=== PATIENT | male | born 1945 | race Caucasian/White ===

== ENCOUNTER 2022-06-30 15:07 | Outpatient (CLI) | payer MEDICARE, BC, SELFPAY ==
[2022-06-30 14:49] LABS: Chloride* 102 mmol/L (96-114)
[2022-06-30 14:50] LABS: Potassium* 4.8 mmol/L (3.6-5.1); Sodium* 138 mmol/L (135-149)
[2022-06-30 14:52] LABS: Cholesterol* 141 mg/dL (90-199); Creatinine* 0.9 mg/dL (0.5-1.5); Estimated Glomerular Filt Rate 88 ml/min
[2022-06-30 14:53] LABS: Blood Urea Nitrogen* 22 mg/dL (7-30); Calcium* 9.5 mg/dL (8.4-10.6); Carbon Dioxide* 26 mmol/L (20-32); Glucose* 94 mg/dL (60-115); HDL Cholesterol* 30 mg/dL (>=40); LDL Cholesterol Calculated 81 mg/dL (<100); Triglycerides* 149 mg/dL (40-149)
[2022-06-30 15:07] LABS: Ferritin* 41.9 ng/mL (17.9-464.0)
== END 2022-06-30 15:08 | disposition home or self-care (01) ==
PROVIDERS: PCP Emergency Medicine; Visit Provider Emergency Medicine
DX: D64.9 Anemia, unspecified (principal); E78.5 Hyperlipidemia, unspecified; R97.20 Elevated prostate specific antigen [PSA]; I10 Essential (primary) hypertension
CPT/HCPCS: 80048; 80061; 82728; 84153

== ENCOUNTER 2022-07-09 11:39 | Outpatient (CLI) | payer MEDICARE, BC, SELFPAY ==
[2022-07-09 23:25] LABS: Creatinine Urine 122.2 mg/dL; Microalbumin Creatinine Ratio 40 mg/g (0-30); Microalbumin Urine 6 mg/dL
== END 2022-07-09 11:40 | disposition home or self-care (01) ==
LOC: LKVREF 11:40
PROVIDERS: PCP Emergency Medicine; Visit Provider Emergency Medicine
DX: E11.9 Type 2 diabetes mellitus without complications (principal); I10 Essential (primary) hypertension
CPT/HCPCS: 82043; 82570

== ENCOUNTER 2022-12-10 08:15 | Outpatient (CLI) | payer MEDICARE, BC, SELFPAY ==
[2022-12-10 13:28] LABS: Chloride* 104 mmol/L (96-114); Sodium* 139 mmol/L (135-149)
[2022-12-10 13:29] LABS: Potassium* 5.6 mmol/L (3.6-5.1)
[2022-12-10 13:31] LABS: Blood Urea Nitrogen* 20 mg/dL (7-30); Carbon Dioxide* 29 mmol/L (20-32); Cholesterol* 147 mg/dL (90-199); Creatinine* 0.9 mg/dL (0.5-1.5); Estimated Glomerular Filt Rate 88 ml/min
[2022-12-10 13:32] LABS: Calcium* 9.6 mg/dL (8.4-10.6); Glucose* 109 mg/dL (60-115); HDL Cholesterol* 29 mg/dL (>=40); LDL Cholesterol Calculated 70 mg/dL (<100); Triglycerides* 242 mg/dL (40-149)
[2022-12-10 13:54] LABS: Creatinine Urine 62.4 mg/dL
[2022-12-10 13:59] LABS: Microalbumin Creatinine Ratio 90 mg/g (0-30); Microalbumin Urine 6 mg/dL
[2022-12-10 14:03] LABS: PSA Diagnostic* 1.85 ng/mL (0.10-4.00)
== END 2022-12-10 08:16 | disposition home or self-care (01) ==
PROVIDERS: PCP Emergency Medicine; Visit Provider Emergency Medicine
DX: Z00.00 Encounter for general adult medical examination without abnormal findings (principal); E11.9 Type 2 diabetes mellitus without complications; E78.5 Hyperlipidemia, unspecified; I10 Essential (primary) hypertension; R97.20 Elevated prostate specific antigen [PSA]; Z12.5 Encounter for screening for malignant neoplasm of prostate
CPT/HCPCS: 80048; 80061; 82043; 82570; 84153

== ENCOUNTER 2022-12-15 13:36 | Outpatient (CLI) | payer MEDICARE, BC, SELFPAY ==
[2022-12-16 16:56] LABS: Vitamin B12* 807 pg/mL (243-894)
== END 2022-12-15 13:37 | disposition home or self-care (01) ==
PROVIDERS: PCP Emergency Medicine; Visit Provider Emergency Medicine
DX: Z00.00 Encounter for general adult medical examination without abnormal findings (principal); E11.9 Type 2 diabetes mellitus without complications; I10 Essential (primary) hypertension; G62.9 Polyneuropathy, unspecified; E78.5 Hyperlipidemia, unspecified
CPT/HCPCS: 82607

== ENCOUNTER 2023-03-31 14:34 | Outpatient (CLI) | payer MEDICARE, BC, SELFPAY ==
[2023-03-31 21:39] LABS: Chloride* 100 mmol/L (96-114)
[2023-03-31 21:40] LABS: Potassium* 5.1 mmol/L (3.6-5.1); Sodium* 136 mmol/L (135-149)
[2023-03-31 21:42] LABS: Creatinine* 1.1 mg/dL (0.5-1.5); Estimated Glomerular Filt Rate 69 ml/min
[2023-03-31 21:43] LABS: Blood Urea Nitrogen* 27 mg/dL (7-30); Calcium* 9.9 mg/dL (8.4-10.6); Carbon Dioxide* 24 mmol/L (20-32); Glucose* 98 mg/dL (60-115)
== END 2023-03-31 14:35 | disposition home or self-care (01) ==
PROVIDERS: PCP Emergency Medicine; Visit Provider Emergency Medicine
DX: I10 Essential (primary) hypertension (principal)
CPT/HCPCS: 80048

== ENCOUNTER 2023-04-02 09:40 | Outpatient (CLI) | payer MEDICARE, BC, SELFPAY | END 2023-04-02 09:41 | disposition home or self-care (01) | LOC: NFLDREF 04-04 20:02 | PROVIDERS: PCP Emergency Medicine; Referring Provider Emergency Medicine; Visit Provider Emergency Medicine | DX: R80.9 Proteinuria, unspecified (principal) | CPT/HCPCS: 82043; 82570 ==

== ENCOUNTER 2023-12-27 08:00 | Outpatient (CLI) | payer MEDICARE, BC, SELFPAY | END 2023-12-27 08:01 | disposition home or self-care (01) | LOC: NFLDREF 01-07 09:14 | PROVIDERS: PCP Emergency Medicine; Referring Provider Emergency Medicine; Visit Provider Emergency Medicine | DX: Z00.00 Encounter for general adult medical examination without abnormal findings (principal); E11.9 Type 2 diabetes mellitus without complications; E78.5 Hyperlipidemia, unspecified; I10 Essential (primary) hypertension; R97.20 Elevated prostate specific antigen [PSA]; E87.5 Hyperkalemia; R79.0 Abnormal level of blood mineral | CPT/HCPCS: 80053; 80061; 82043; 82570; G0103 ==

== ENCOUNTER 2023-12-28 13:56 | Outpatient (CLI) | payer MEDICARE, BC, SELFPAY | END 2023-12-28 13:57 | disposition home or self-care (01) | LOC: NFLDREF 01-10 19:11 | PROVIDERS: PCP Emergency Medicine; Referring Provider Emergency Medicine; Visit Provider Emergency Medicine | DX: E78.5 Hyperlipidemia, unspecified (principal); E11.9 Type 2 diabetes mellitus without complications; I10 Essential (primary) hypertension; R97.20 Elevated prostate specific antigen [PSA]; E87.5 Hyperkalemia; M79.643 Pain in unspecified hand; M79.641 Pain in right hand; D32.0 Benign neoplasm of cerebral meninges | CPT/HCPCS: 80061 ==

== ENCOUNTER 2024-04-01 21:12 | Emergency (ER) | payer MEDICARE, BC, SELFPAY ==
[2024-04-01 21:16] VITALS: BP 163/85; PULSE 78; RESP 18; TEMP 36.7; O2SAT 99; BMI 28.7
--- NOTE | 2024-04-01 22:09 | ED_ITS ---
HPI - General Adult General Chief complaint: Rib Pain Stated complaint: Sharp pain - R side Time Seen by Provider: 04/01/24 21:53 History of Present Illness HPI narrative: This 78-year-old male comes in reporting right lateral posterior rib pain that began a couple days ago. He does not report any injury event or strenuous activity to trigger this. He does not have any skin changes in this area suggestive of shingles. He states that the pain is not worsened when taking a deep breath or when pressing in this area but it is reproducible with certain movements of his right arm. Related Data Home Medications ?Medication ?Instructions ?Recorded ?Confirmed ascorbic acid (vitamin C) 250 mg 250 mg PO DAILY 05/13/22 04/01/24 tablet cholecalciferol (vitamin D3) 25 1,000 unit PO DAILY 05/13/22 04/01/24 mcg (1,000 unit) tablet cyanocobalamin (vitamin B-12) 500 500 mcg PO DAILY 05/13/22 04/01/24 mcg tablet multivitamin 1 tab PO QAM 05/13/22 04/01/24 naproxen sodium 220 mg tablet 220 mg PO HS PRN 05/13/22 04/01/24 (Aleve) aspirin 81 mg tablet,delayed 81 mg PO QDAY 03/31/23 04/01/24 release (Adult Aspirin Regimen) atorvastatin 40 mg tablet 60 mg PO HS 04/01/24 04/01/24 Previous Rx's ?Medication ?Instructions ?Recorded fast clix lancet #100 ea 04/19/23 losartan 50 mg-hydrochlorothiazide 1 tab PO QDAY #90 tabs 12/28/23 12.5 mg tablet metformin 500 mg tablet 1,000 mg (2 x 500 mg) PO BID #360 12/28/23 tabs blood sugar diagnostic (Accu-Chek #100 ea 02/24/24 Guide test strips) Allergies Allergy/AdvReac Type Severity Reaction Status Date / Time lisinopril Allergy Mild Cough Verified 04/01/24 21:18 Review of Systems Status of ROS: Reports: 10 or more systems reviewed and unremarkable except as noted in History and below Narrative: Constitutional: No fevers, no weight gain or loss. Eyes: No discharge. No vision changes. HENT: No congestion, no sore throat, no ear pain. Cardiovascular: No chest pain, no palpitations. Respiratory: No shortness of breath, no wheezes, no cough. Gastrointestinal: No abdominal pain, no vomiting, no diarrhea. Genitourinary: No dysuria, no hematuria. Musculoskeletal: Normal range of motion. Skin: No rashes, no pruritis. Neurological: No dizziness, weakness, sensory change, speech change. Endo/Heme/Allergies: No bruising or bleeding. No polydipsia. Pysch: no suicidality, no anxiety, no insomnia. All other systems reviewed and are negative. [facility] Medical History (Updated 04/01/24 @ 22:13 by Tristan Rosa MD) Type II diabetes mellitus, well controlled ?E11.9 - Type 2 diabetes mellitus without complications (ICD-10) Hand pain ?M79.643 - Pain in unspecified hand (ICD-10) Hyperkalemia ?E87.5 - Hyperkalemia (ICD-10) Neuropathy ?G62.9 - Polyneuropathy, unspecified (ICD-10) Albuminuria ?R80.9 - Proteinuria, unspecified (ICD-10) Screen for colon cancer ?Z12.11 - Encounter for screening for malignant neoplasm of colon (ICD-10) Low ferritin level ?R79.0 - Abnormal level of blood mineral (ICD-10) Lesion of lip ?K13.0 - Diseases of lips (ICD-10) Sprain of ulnar collateral ligament of elbow ?S53.449A - Ulnar collateral ligament sprain of unspecified elbow, initial encounter (ICD-10) Ear problem ?H93.90 - Unspecified disorder of ear, unspecified ear (ICD-10) Surgical History History of bilateral cataract extraction ?Z98.41 - Cataract extraction status, right eye (ICD-10) ?Z98.42 - Cataract extraction status, left eye (ICD-10) History of appendectomy (07/04/13) ?Z90.49 - Acquired absence of other specified parts of digestive tract (ICD- 10) Family History (Updated 12/28/23 @ 13:22 by Faith Bautista MD) Father Diabetes Mother Lung cancer Sister Type 1 diabetes mellitus Brother Type 1 diabetes mellitus Other Parkinson's disease Social History (Updated 05/08/22 @ 13:24 by Lawrence Bassett) Narrative: exercises regularly Smoking Status: Never smoker Second hand tobacco smoke exposure: No How often do you have a drink containing alcohol: never AUDIT-C Alcohol total score: 0 Non-prescribed substance use: denies use Little interest or pleasure in doing things: not at all Feeling down, depressed, or hopeless: not at all Exam Narrative: Exam Narrative: Constitutional: Well-developed, well-nourished, no acute distress. HEENT: Normocephalic, atraumatic. Neck: Normal range of motion. Nontender. Supple. Heart: Regular. No murmurs. Normal rate. Intact distal pulses. Lungs: Clear to auscultation. No chest discomfort. No wheezes, rhonchi, or rales. No pain when percussing over the right flank region. Pain is reproduced with certain movements of his right arm. Abdomen: Normal bowel sounds. Nontender. No rebound tenderness. Genitalia: Deferred. Back: No midline tenderness. Normal range of motion. Extremities: Normal range of motion. No injury. Skin: Intact. No rash. Warm. No erythema or pallor. Neurologic: No altered sensation. No weakness. Alert and oriented. Psychiatric: No suicidality. No anxiety or depression. No insomnia. Nursing notes and vitals signs are reviewed. Const: Vital Signs, click to edit/add: Vital Signs - 24 hr 04/01/24 21:16 Temperature 98.1 F Pulse Rate [Right Pulse Oximeter] 78 Respiratory Rate 18 Blood Pressure [Ri ght Upper Arm] 163/85 H Pulse Oximetry 99 Oxygen Delivery Me thod Room Air Course Vital Signs Vital signs: Initial Vital Signs Temperature 98.1 F 04/01/24 21:16 Temperature Source Temporal Artery Scan 04/01/24 21:16 Pulse Rate 78 04/01/24 21:16 Respiratory Rate 18 04/01/24 21:16 Blood Pressure 163/85 H 04/01/24 21:16 Blood Pressure Mean 111 H 04/01/24 21:16 Blood Pressure Position Sitting 04/01/24 21:16 Pulse Oximetry 99 04/01/24 21:16 Oxygen Delivery Method Room Air 04/01/24 21:16 Vital Signs Temperature 98.1 F 04/01/24 21:16 Pulse Rate 78 04/01/24 21:16 Respiratory Rate 18 04/01/24 21:16 Blood Pressure 163/85 H 04/01/24 21:16 Pulse Oximetry 99 04/01/24 21:16 Oxygen Delivery Method Room Air 04/01/24 21:16 Temperature 98.1 F 04/01/24 21:16 Pulse Rate 78 04/01/24 21:16 Respiratory Rate 18 04/01/24 21:16 Blood Pressure 163/85 H 04/01/24 21:16 Pulse Oximetry 99 04/01/24 21:16 Oxygen Delivery Method Room Air 04/01/24 21:16 Medical Decision Making MDM Narrative Medical decision making narrative: This patient comes in reporting pain in his right posterior lateral ribs. His exam is rather normal. I did discuss lab and imaging options but seeing normal vital signs and exam the patient declined any such studies for now. His pain is reproducible suggesting some kind of musculoskeletal pain. There is possibility that he is having pain with forthcoming rash that might indicate a shingles flare up. There is no such rash currently and it seems like his pain is more likely musculoskeletal. The patient did receive prescription from the [facility] for Flexeril and Toradol. He has follow-up plans with his primary physician. Discharge Plan Discharge Clinical Impression: Acute chest wall pain Patient Disposition: Home, Self-Care Condition: Unchanged Additional Instructions: Take medication as prescribed and needed. Follow up with MD or return if worsening. Prescriptions: No Action aspirin [Adult Aspirin Regimen] 81 mg tablet,delayed release (DR/EC) 81 mg PO QDAY metformin 500 mg tablet 1,000 mg PO BID Qty: 360 3RF losartan-hydrochlorothiazide 50-12.5 mg tablet 1 tab PO QDAY Qty: 90 3RF Rx Instructions: do not fill losartan 50 cholecalciferol (vitamin D3) 25 mcg (1,000 unit) tablet 1,000 unit PO DAILY ascorbic acid (vitamin C) 250 mg tablet 250 mg PO DAILY cyanocobalamin (vitamin B-12) 500 mcg tablet 500 mcg PO DAILY multivitamin Tablet 1 tab PO QAM naproxen sodium [Aleve] 220 mg tablet 220 mg PO HS PRN atorvastatin 40 mg tablet 60 mg PO HS (DME) fast clix lancet 0 .Route .MEDSUPPLY Qty: 100 3RF Rx Instructions: As directed (DME) Accu-Chek Guide test strips Strip See Rx Instructions .Route Qty: 100 3RF Rx Instructions: use to test blood sugar daily Follow Up/Referrals: Faith Bautista MD [Primary Care Provider] - Stand Alone Forms: Total Immersion Info Instructions
== END 2024-04-01 22:26 | disposition home or self-care (01) ==
LOC: ED 22:22
PROVIDERS: Emergency Provider Emergency Medicine Emergency Medical Services; PCP Emergency Medicine
DX: R07.89 Other chest pain (principal)
CPT/HCPCS: 99283; 99284

== ENCOUNTER 2024-05-02 12:14 | Outpatient (CLI) | payer MEDICARE, BC, SELFPAY | END 2024-05-02 12:15 | disposition home or self-care (01) | PROVIDERS: PCP Emergency Medicine; Visit Provider Emergency Medicine | DX: R20.2 Paresthesia of skin (principal); E87.5 Hyperkalemia; E11.9 Type 2 diabetes mellitus without complications; I10 Essential (primary) hypertension; E78.5 Hyperlipidemia, unspecified; E78.1 Pure hyperglyceridemia | CPT/HCPCS: 82607; 84443 ==

== ENCOUNTER 2024-06-20 08:02 | Outpatient (CLI) | payer MEDICARE, BC, SELFPAY | END 2024-06-20 08:03 | disposition home or self-care (01) | LOC: NFLDREF 06-22 12:43 | PROVIDERS: PCP Emergency Medicine; Referring Provider Emergency Medicine; Visit Provider Emergency Medicine | DX: I10 Essential (primary) hypertension (principal); E78.2 Mixed hyperlipidemia; E78.5 Hyperlipidemia, unspecified; E11.9 Type 2 diabetes mellitus without complications | CPT/HCPCS: 80048; 80061 ==

== ENCOUNTER 2024-08-30 15:13 | Outpatient (CLI) | payer MEDICARE, BC, SELFPAY | END 2024-08-30 15:14 | disposition home or self-care (01) | LOC: LKVREF 15:14 | PROVIDERS: PCP Emergency Medicine; Visit Provider Emergency Medicine | DX: Z01.818 Encounter for other preprocedural examination (principal); I10 Essential (primary) hypertension | CPT/HCPCS: 80048 ==

== ENCOUNTER 2025-01-02 08:08 | Outpatient (CLI) | payer MEDICARE, BC, SELFPAY | END 2025-01-02 08:09 | disposition home or self-care (01) | LOC: NFLDREF 01-04 06:10 | PROVIDERS: PCP Emergency Medicine; Referring Provider Emergency Medicine; Visit Provider Emergency Medicine | DX: E11.9 Type 2 diabetes mellitus without complications (principal); R79.0 Abnormal level of blood mineral; R79.89 Other specified abnormal findings of blood chemistry; I10 Essential (primary) hypertension; E78.5 Hyperlipidemia, unspecified; E78.1 Pure hyperglyceridemia; Z12.5 Encounter for screening for malignant neoplasm of prostate | CPT/HCPCS: 80048; 82043; 82570; G0103 ==

== ENCOUNTER 2025-07-03 09:44 | Outpatient (CLI) | payer MEDICARE, BC, SELFPAY | END 2025-07-03 09:45 | disposition home or self-care (01) | LOC: NFLDREF 07-08 23:17 | PROVIDERS: PCP Family Medicine; Referring Provider Family Medicine; Visit Provider Family Medicine | DX: Z00.00 Encounter for general adult medical examination without abnormal findings (principal) | CPT/HCPCS: 80053 ==